=== PATIENT | male | born 1990 | race African-American/Black ===

== ENCOUNTER 2016-08-25 18:04 | Emergency (ER) | payer OTHER, SELFPAY ==
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
[2016-08-25 19:29] VITALS: BP 137/66; PULSE 72; O2SAT 94
== END 2016-08-25 19:29 | disposition home or self-care (01) ==
LOC: ED 18:04
DX: H66.41 Suppurative otitis media, unspecified, right ear (principal); Y04.0XXA Assault by unarmed brawl or fight, initial encounter
CPT/HCPCS: 99282

== ENCOUNTER 2016-08-27 19:35 | Emergency (ER) | payer OTHER ==
[2016-08-27] MEDS ORDERED: DILAUDID 1 MG/ML INJECTION IV ONE ×2 (20:07→21:22)
[2016-08-27] MEDS ORDERED: BENADRYL 50 MG/ML IV ONE ×2 (20:07→21:22)
[2016-08-27] MEDS ORDERED: Sodium Chloride 0.9% 1000 ML 1,000 ML IV STA (20:07)
[2016-08-27] MEDS ORDERED: BENADRYL 50 MG/ML ONE ×2 (20:13→21:39)
[2016-08-27] MEDS ORDERED: Sodium Chloride 0.9% 1000 ML 1,000 ML ONE (20:14)
[2016-08-27] MEDS ORDERED: Adacel Vial IM ONE ×2 (20:14→20:17)
[2016-08-27] MEDS ORDERED: DILAUDID 1 MG/ML INJECTION ONE ×2 (20:14→21:39)
--- NOTE | 2016-08-27 20:14 | ERPHSYRPT ---
- History of Present Illness Time Seen by Provider: 08/27/16 20:00 Source: patient Patient Subjective Stated Complaint: Pt sts seen 2 days ago in this ER for ear pain, dx with "infection". Given Rx for naproxen and bactrim. Sts area behind rt ear is increasing in size with increased pain and discomfort. Denies fever, nausea, vomiting. Pt sts pain 10/10. Triage Nursing Assessment: Pt alert, oriented, ambulatory to tx room, steady gait noted. Skin p/w/d, resps non-labored. Area behind rt ear appears reddened, swollen, warm to touch. Physician History: CC: right ear pain Hx: 26 y/o male pt with few day hx of pain and swelling behind right ear. Was in ER two days ago and started bactrim. The redness, pain, and swelling have worsened. No fever, headache. No other boils. No hx of infectious problems. Works in food industry. No allergies. Unsure last tetanus. Pain moderately severe. Severity: moderate ENT Location: ear (R) Allergies/Adverse Reactions: No Known Drug Allergies Allergy (Verified 08/27/16 20:09) Hx Tetanus, Diphtheria Vaccination/Date Given: No Hx Influenza Vaccination/Date Given: No Hx Pneumococcal Vaccination/Date Given: No - Review of Systems Constitutional: No Fever, No Chills Eyes: No Symptoms Ears, Nose, & Throat: Ear Pain Respiratory: No Dyspnea Cardiac: No Chest Pain Abdominal/Gastrointestinal: No Abdominal Pain, No Nausea, No Vomiting Musculoskeletal: No Back Pain, No Neck Pain Skin: No Rash Neurological: No Headache All Other Systems: Reviewed and Negative - Past Medical History Pertinent Past Medical History: Yes Neurological History: No Pertinent History ENT History: No Pertinent History Cardiac History: No Pertinent History Respiratory History: No Pertinent History Endocrine Medical History: No Pertinent History Musculoskeletal History: No Pertinent History GI Medical History: Ulcer Psycho-Social History: No Pertinent History Male Reproductive Disorders: No Pertinent History - Past Surgical History Past Surgical History: Yes Cardiac: Cardiac Catheterization Other Surgical History: cath to check heart murmur at age 16 - Social History Smoking Status: Current every day smoker How long have you smoked: 9 Exposure to second hand smoke: Yes Alcohol Use: Chronic Drug Use: marijuana Patient Lives Alone: No Significant Family History: no pertinent family hx - Nursing Vital Signs Nursing Vital Signs: Initial Vital Signs Temperature 98.0 F Temperature Source Oral Pulse Rate 67 Respiratory Rate 16 Blood Pressure 114/78 Pain Intensity 6 - Physical Exam General Appearance: alert Eye Exam: bilateral eye: PERRL, EOMI Nasal Exam: normal inspection Throat Exam: pharynx normal, moist mucus membranes, No tonsillar exudate Neck Exam: non-tender, supple Cardiovascular/Respiratory Exam: chest non-tender, normal breath sounds, regular rate/rhythm Abdominal Exam: non-tender, soft Neurologic Exam: alert, oriented x 3, cooperative Skin Exam: warm, dry SpO2: 98 Oxygen Delivery: Room Air Comments: 2cm swollen cystic nodular area inferior and posterior to right auricle. Likely abscess. Doubt mastoiditis involved. TM normal. No pain with movement of pinna. Procedures - Incision and Drainage Site: right posterior auricular/neck area Anesthesia: 1% lidocaine w/epi cc's of anesthesia: 3 Blade Size: scalpel I & D Procedure: betadine prep, culture obtained, gauze wick placed Results: large amount pus - Course Nursing assessment & vital signs reviewed: Yes Ordered Tests: Active Orders 24 hr Category Date Time Status IV Insertion STAT Care 08/27/16 20:07 Active NPO (ED) STAT Care 08/27/16 20:07 Active NECK WITH CONTRAST [CT] Stat Exams 08/27/16 20:09 Taken BLOOD CULTURE Stat Lab 08/27/16 20:20 Received CBC W DIFF Stat Lab 08/27/16 20:20 Completed CMP Stat Lab 08/27/16 20:20 Completed CULTURE,WOUND Stat Lab 08/27/16 22:14 Ordered Lactic Acid Urgent Lab 08/27/16 20:20 Completed Medication Summary Discontinued Medications Generic Name Dose Route Start Last Admin Trade Name Elenita PRN Reason Stop Dose Admin Diphenhydramine HCl 25 mg 08/27/16 20:07 08/27/16 20:20 Benadryl 50 Mg/Ml IV 08/27/16 20:08 25 mg STAT ONE Administration Diphenhydramine HCl Confirm 08/27/16 20:13 Benadryl 50 Mg/Ml Administered 08/27/16 20:14 Dose 50 mg .ROUTE .STK-MED ONE Diphenhydramine HCl 25 mg 08/27/16 21:22 08/27/16 21:46 Benadryl 50 Mg/Ml IV 08/27/16 21:23 25 mg STAT ONE Administration Diphenhydramine HCl Confirm 08/27/16 21:39 Benadryl 50 Mg/Ml Administered 08/27/16 21:40 Dose 50 mg .ROUTE .STK-MED ONE Diphtheria/Tetanus/Acell Pertussis 0.5 ml 08/27/16 20:14 08/27/16 20:20 Adacel Vial IM 08/27/16 20:15 0.5 ml .ONCE ONE Administration Diphtheria/Tetanus/Acell Pertussis Confirm 08/27/16 20:17 Adacel Vial Administered 08/27/16 20:18 Dose 0.5 ml IM .STK-MED ONE Hydromorphone HCl 1 mg 08/27/16 20:07 08/27/16 20:20 Dilaudid 1 Mg/Ml Injection IV 08/27/16 20:08 1 mg STAT ONE Administration Hydromorphone HCl Confirm 08/27/16 20:14 Dilaudid 1 Mg/Ml Injection Administered 08/27/16 20:15 Dose 1 mg .ROUTE .STK-MED ONE Hydromorphone HCl 1 mg 08/27/16 21:22 08/27/16 21:46 Dilaudid 1 Mg/Ml Injection IV 08/27/16 21:23 1 mg STAT ONE Administration Hydromorphone HCl Confirm 08/27/16 21:39 Dilaudid 1 Mg/Ml Injection Administered 08/27/16 21:40 Dose 1 mg .ROUTE .STK-MED ONE Sodium Chloride 1,000 mls @ 999 mls/hr 08/27/16 20:07 08/27/16 20:19 Sodium Chloride 0.9% 1000 Ml IV 08/27/16 21:07 999 mls/hr .Q1H1M STA Administration Sodium Chloride Confirm 08/27/16 20:14 Sodium Chloride 0.9% 1000 Ml Administered 08/27/16 20:15 Dose 1,000 mls @ ud .ROUTE .STK-MED ONE Lidocaine/Epinephrine 5 ml 08/27/16 21:22 08/27/16 21:46 Xylocaine 1%/Epi 1:[id number] Mdv 20 Ml IJ 08/27/16 21:23 5 ml STAT ONE Administration Lidocaine/Epinephrine Confirm 08/27/16 21:39 Xylocaine 1%/Epi 1:902687 Mdv 20 Ml Administered 08/27/16 21:40 Dose 1 ml .ROUTE .STK-MED ONE Lab/Rad Data: Laboratory Result Diagrams 08/27/16 20:20 08/27/16 20:20 Laboratory Results 08/27/16 08/27/16 08/27/16 Range/Units 20:20 20:20 20:20 WBC 5.0 (4.0-10.5) K/mm3 RBC 4.71 (4.1-5.6) M/mm3 Hgb 14.2 (12.5-18.0) gm/dl Hct 42.8 (42-50) % MCV 90.9 (78-100) fl MCH 30.1 (26-32) pg MCHC 33.2 (32-36) g/dl RDW 13.4 (11.5-14.0) % Plt Count 125 L (150-450) K/mm3 MPV 11.5 H (6-9.5) fl Gran % 43.8 (36.0-66.0) % Lymphocytes % 41.9 (24.0-44.0) % Monocytes % 10.1 (0.0-12.0) % Eosinophils % 3.8 (0.00-5.0) % Basophils % 0.4 (0.0-0.4) % Basophils # 0.02 (0-0.4) Sodium 142 (136-145) mEq/L Potassium 3.5 (3.5-5.1) mEq/L Chloride 103 (98-107) mEq/L Carbon Dioxide 30.7 (21-32) mEq/L Anion Gap 11.5 (5-15) MEQ/L BUN 14 (9-20) mg/dL Creatinine 1.04 (0.55-1.30) mg/dl Estimated GFR > 60 ML/MIN Glucose 119 H (70-110) MG/DL Lactic Acid 1.0 (0.4-2.0) Calcium 9.0 (8.5-10.1) mg/dL Total Bilirubin 0.5 (0.2-1.0) mg/dL AST 93 H (15-37) U/L ALT 192 H (12-78) U/L Alkaline Phosphatase 260 H (46-116) U/L Serum Total Protein 6.3 L (6.4-8.2) gm/dL Albumin 3.5 (3.4-5.0) g/dL - Progress Progress Note: 08/27/16 20:13 Spoke to commercial hvac service technician and will CT thru mastoids to assess for deep infection. Advised pt likely needs I&D. 08/27/16 21:23 CT shows soft tissue mass area. ?lymph node vs abscess. Will attempt I&D. This was discussed with pt. 08/27/16 22:15 Pt was advised continue bactrim, wound care, and follow up with family doctor to have liver checked. Counseled pt/family regarding: lab results, diagnosis, need for follow-up - Departure Time of Disposition: 22:16 Departure Disposition: Home Clinical Impression: abscess right posterior auricular, Elevated transaminase level Condition: Stable Critical Care Time: No Referrals: DOCTOR,NO FAMILY [Primary Care Provider] - Instructions: Incision and Drainage of a Skin Abscess Additional Instructions: Remove packing tomorrow then warm compresses 4 times a day. Continue bactrim antibiotics. You need to see a family doctor to have liver checked. Return for fever, worsening or concerns. Ibuprofen as directed for fever or discomfort.
[2016-08-27 20:31] LABS: BASOPHIL % 0.4 % (0.0-0.4); Eosinophil % 3.8 % (0.00-5.0); Granulocytes % 43.8 % (36.0-66.0); Lymphocytes % 41.9 % (24.0-44.0); Mean Cell Volume 90.9 fl (78-100); Mean Corpuscular Hemoglobin 30.1 pg (26-32); Mean Platelet Volume 11.5 fl (6-9.5); Monocytes % 10.1 % (0.0-12.0); Platelet Count 125 K/mm3 (150-450); Red Blood Count 4.71 M/mm3 (4.1-5.6); Red Cell Distribution Width 13.4 % (11.5-14.0)
[2016-08-27 20:53] LABS: ALBUMIN 3.5 g/dL (3.4-5.0); ALKALINE PHOSPHATASE 260 U/L (46-116); ANION GAP 11.5 MEQ/L (5-15); BILIRUBIN,TOTAL 0.5 mg/dL (0.2-1.0); BLOOD UREA NITROGEN 14 mg/dL (9-20); CHLORIDE 103 mEq/L (98-107); Carbon Dioxide 30.7 mEq/L (21-32); Glucose 119 MG/DL (70-110); Potassium 3.5 mEq/L (3.5-5.1); SGOT/AST 93 U/L (15-37); SGPT/ALT 192 U/L (12-78); SODIUM 142 mEq/L (136-145); Total Protein 6.3 gm/dL (6.4-8.2)
[2016-08-27] MEDS ORDERED: XYLOCAINE 1%/Epi 1:100000 MDV 20 ML IJ ONE (21:22)
[2016-08-27] MEDS ORDERED: XYLOCAINE 1%/Epi 1:100000 MDV 20 ML ONE (21:39)
[2016-08-27 22:32] VITALS: BP 125/78; PULSE 70; O2SAT 96
--- NOTE | 2016-08-28 08:57 | XRAY ---
Indication: Right neck knot. Multiple contiguous axial images obtained through the neck using 80 cc Isovue 370 contrast. Comparison: None Inferior to the right ear, there is a vague cutaneous/subcutaneous soft tissue mass measuring 3.9 x 2.0 cm in greatest axial dimension with small focus of central hypoattenuation. Partial differential includes lymphadenopathy, parotiditis, or cellulitis. No pathologic cervical lymphadenopathy. Major arteries and veins are normal in course and caliber. Subra and infraglottic airway are widely patent. Thyroid gland enhances homogeneously. Underlying cervical spine intact. Visualized of the brain and lung apices unremarkable. Impression: Cutaneous/subcutaneous soft tissue mass inferior to the right ear either lymphadenopathy, parotiditis, or cellulitis. Correlate clinically. Comment: Preliminary interpretation was made by [facility]. No critical discrepancy. CTDI is 17.44
== END 2016-08-27 22:32 | disposition home or self-care (01) ==
LOC: ED 19:35
PROC: 09900ZZ Drainage of Right External Ear, Open Approach (ICD-10-PCS; principal; 2016-08-27)
DX: H60.01 Abscess of right external ear (principal); R74.0 Nonspecific elevation of levels of transaminase and lactic acid dehydrogenase [LDH]
CPT/HCPCS: 36000; 36415; 69000; 70491; 80053; 83605; 85025; 87040; 87070; 90471; 90715; 96360; 99283; J1170; J1200

== ENCOUNTER 2016-09-05 11:19 | Emergency (ER) | payer OTHER ==
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
[2016-09-05] MEDS ORDERED: TORAdol 30 mg Injection IM ONE (12:02)
[2016-09-05 12:20] VITALS: BP 114/72; PULSE 62
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
[2016-09-05] MEDS ORDERED: ZOFRAN ODT 4 MG PO ONE (12:51)
[2016-09-05 12:54] VITALS: O2SAT 98
== END 2016-09-05 13:17 ==
LOC: ED 11:19
DX: M54.9 Dorsalgia, unspecified (principal); S30.0XXA Contusion of lower back and pelvis, initial encounter; S50.12XA Contusion of left forearm, initial encounter; Y08.02XA Assault by strike by baseball bat, initial encounter; R11.2 Nausea with vomiting, unspecified
CPT/HCPCS: 72170; 73090; 96372; 99283; J1885; Q0162

== ENCOUNTER 2016-09-13 14:12 | Emergency (ER) | payer OTHER ==
[2016-09-13] MEDS ORDERED: Pepcid 20 MG VIAL IV ONE ×2 (14:54→14:59)
[2016-09-13] MEDS ORDERED: Phenergan 25 MG INJ IM ONE (14:54)
[2016-09-13] MEDS ORDERED: Phenergan 25 MG INJ ONE (14:59)
[2016-09-13 15:01] LABS: BASOPHIL % 0.8 % (0.0-0.4); Eosinophil % 2.1 % (0.00-5.0); Granulocytes % 32.2 % (36.0-66.0); Lymphocytes % 52.4 % (24.0-44.0); Mean Cell Volume 91.4 fl (78-100); Mean Corpuscular Hemoglobin 29.9 pg (26-32); Mean Platelet Volume 11.9 fl (6-9.5); Monocytes % 12.5 % (0.0-12.0); Platelet Count 156 K/mm3 (150-450); Red Blood Count 5.21 M/mm3 (4.1-5.6); Red Cell Distribution Width 13.1 % (11.5-14.0); White Blood Count 3.8 K/mm3 (4.0-10.5)
--- NOTE | 2016-09-13 15:04 | ERPHSYRPT ---
- History of Present Illness Time Seen by Provider: 09/13/16 14:45 Historian: patient Patient Subjective Stated Complaint: Pt states he has been having stomach issues for a while now. He thought it was just a bug but it wont go away. He states he has n/v and constipation along with loss of appetite. He states he thinks "something is wrong with his kidneys because something is wrong with his stomach". Denies any difficulties with urination. Triage Nursing Assessment: Pt alert and oriented x3. skin pink warm and dry. afebrile. pt does not appear to be in any distress at this time. bowel sounds present x4. abdomen soft and tender with palpation Physician History: CC: abd pain Hx: 26 y/o male patient with abd pain. He has decreased apetite, malaise, sharp pains in the abdomen. No fever or chills. No hx of chronic abd problems. Pain is severe. Was some worse so came to ER today. Timing/Duration: week(s) (few weeks now worse) Severity of Pain-Max: severe Severity of Pain-Current: moderate Allergies/Adverse Reactions: No Known Drug Allergies Allergy (Verified 09/13/16 14:16) Home Medications: Ondansetron [Zofran Odt] 4 mg PO Q4HPRN PRN 09/13/16 [History] Hx Tetanus, Diphtheria Vaccination/Date Given: Yes (2015) Hx Influenza Vaccination/Date Given: No Hx Pneumococcal Vaccination/Date Given: No - Review of Systems Constitutional: Malaise, No Fever, No Chills Eyes: No Symptoms Ears, Nose, & Throat: No Symptoms Respiratory: No Cough, No Dyspnea Cardiac: No Chest Pain Abdominal/Gastrointestinal: Abdominal Pain, Nausea, No Vomiting, No Diarrhea, No Constipation Genitourinary Symptoms: No Dysuria, No Hematuria Skin: No Rash Neurological: No Headache All Other Systems: Reviewed and Negative - Past Medical History Pertinent Past Medical History: Yes Neurological History: No Pertinent History ENT History: No Pertinent History Cardiac History: No Pertinent History Respiratory History: No Pertinent History Endocrine Medical History: No Pertinent History Musculoskeletal History: No Pertinent History GI Medical History: Ulcer Psycho-Social History: No Pertinent History Male Reproductive Disorders: No Pertinent History - Past Surgical History Past Surgical History: Yes Cardiac: Cardiac Catheterization Other Surgical History: cath to check heart murmur at age 16 - Social History Smoking Status: Current every day smoker How long have you smoked: 9 Exposure to second hand smoke: Yes Alcohol Use: Chronic Drug Use: marijuana Patient Lives Alone: No Significant Family History: no pertinent family hx - Nursing Vital Signs Nursing Vital Signs: Initial Vital Signs Temperature 98.2 F Temperature Source Oral Pulse Rate 68 Respiratory Rate 16 Blood Pressure [Right Arm] 117/83 Pain Intensity 8 - Physical Exam General Appearance: alert Eye Exam: PERRL/EOMI Ears, Nose, Throat Exam: normal ENT inspection, moist mucous membranes Neck Exam: normal inspection, non-tender, supple Respiratory Exam: normal breath sounds, lungs clear Cardiovascular Exam: regular rate/rhythm, No murmur Gastrointestinal/Abdomen Exam: soft, tenderness (epigastric but moreso in RLQ, scaphoid abdomen) Male Genitalia Exam: normal genitalia, No hernia, No testicular tenderness Back Exam: normal inspection, No CVA tenderness Extremity Exam: normal inspection, normal range of motion Neurologic Exam: alert, oriented x 3, cooperative, sensation nml, No motor deficits Skin Exam: warm, dry, No rash SpO2 Interpretation: normal SpO2: 100 Oxygen Delivery: Room Air - Course Nursing assessment & vital signs reviewed: Yes Ordered Tests: Active Orders 24 hr Category Date Time Status Clean Catch Urine Specimen STAT Care 09/13/16 14:45 Active IV Insertion STAT Care 09/13/16 14:45 Active ABDOMEN AND PELVIS W CONTRAST [CT] Stat Exams 09/13/16 14:55 Taken CBC W DIFF Stat Lab 09/13/16 14:45 Completed CMP Stat Lab 09/13/16 14:45 Completed LIPASE Stat Lab 09/13/16 14:45 Completed UA Stat Lab 09/13/16 14:45 Completed Medication Summary Discontinued Medications Generic Name Dose Route Start Last Admin Trade Name Freq PRN Reason Stop Dose Admin Famotidine 20 mg 09/13/16 14:54 09/13/16 15:01 Pepcid 20 Mg Vial IV 09/13/16 14:55 20 mg STAT ONE Administration Famotidine Confirm 09/13/16 14:59 Pepcid 20 Mg Vial Administered 09/13/16 15:00 Dose 20 mg IV .STK-MED ONE Promethazine HCl 25 mg 09/13/16 14:54 09/13/16 15:01 Phenergan 25 Mg Inj IM 09/13/16 14:55 25 mg STAT ONE Administration Promethazine HCl Confirm 09/13/16 14:59 Phenergan 25 Mg Inj Administered 09/13/16 15:00 Dose 25 mg .ROUTE .STK-MED ONE Lab/Rad Data: Laboratory Result Diagrams 09/13/16 14:45 09/13/16 14:45 Laboratory Results 09/13/16 09/13/16 09/13/16 Range/Units 14:45 14:45 14:45 WBC 3.8 L (4.0-10.5) K/mm3 RBC 5.21 (4.1-5.6) M/mm3 Hgb 15.6 (12.5-18.0) gm/dl Hct 47.6 (42-50) % MCV 91.4 (78-100) fl MCH 29.9 (26-32) pg MCHC 32.8 (32-36) g/dl RDW 13.1 (11.5-14.0) % Plt Count 156 (150-450) K/mm3 MPV 11.9 H (6-9.5) fl Gran % 32.2 L (36.0-66.0) % Lymphocytes % 52.4 H (24.0-44.0) % Monocytes % 12.5 H (0.0-12.0) % Eosinophils % 2.1 (0.00-5.0) % Basophils % 0.8 (0.0-0.4) % Basophils # 0.03 (0-0.4) Sodium 143 (136-145) mEq/L Potassium 3.6 (3.5-5.1) mEq/L Chloride 105 (98-107) mEq/L Carbon Dioxide 28.0 (21-32) mEq/L Anion Gap 13.2 (5-15) MEQ/L BUN 8 L (9-20) mg/dL Creatinine 0.97 (0.55-1.30) mg/dl Estimated GFR > 60 ML/MIN Glucose 89 (70-110) MG/DL Calcium 9.4 (8.5-10.1) mg/dL Total Bilirubin 0.8 (0.2-1.0) mg/dL AST 42 H (15-37) U/L ALT 69 (12-78) U/L Alkaline Phosphatase 211 H (46-116) U/L Serum Total Protein 7.1 (6.4-8.2) gm/dL Albumin 4.0 (3.4-5.0) g/dL Lipase 77 (73-393) U/L Ur Collection Type VOID Urine Color YELLOW (YELLOW) Urine Appearance CLOUDY (CLEAR) Urine pH 8.5 (5-6) Ur Specific [place] 1.020 (1.005-1.025) Urine Protein NEGATIVE (Negative) Urine Glucose (UA) NEGATIVE (NEGATIVE) mg/dL Urine Ketones NEGATIVE (NEGATIVE) Urine Nitrite NEGATIVE (NEGATIVE) Urine Bilirubin NEGATIVE (NEGATIVE) Urine Urobilinogen 1 (0-1) mg/dL Urine WBC (Auto) NEGATIVE (NEGATIVE) Urine RBC (Auto) NEGATIVE (0-5) Delfino/ul Specimen Received 09/13/16 1445 - Progress Progress Note: 09/13/16 15:04 Discussed testing including pros and cons of CT. Pt chose CT. 09/13/16 17:11 CT abd/pelvis: [place]aney 5:00 PM 09/13/2016: No comps. Mild distended GB w/ borderline wall thickening but no stones...r/o acalculous cholecystits. Nonobstructing R renal microcalculus. B/L renal cysts. Appendix not seen. No free fluid/air. 09/13/16 17:15 Soft abd. Advised follow up with [facility]MD for sonogram of GB. Rx pepcid. He needs work slip. Abd pain instructions given. Counseled pt/family regarding: lab results, diagnosis, need for follow-up, rad results - Departure Time of Disposition: 17:15 Departure Disposition: Home Clinical Impression: Thickening of wall of gallbladder Abdominal pain Qualifiers: Abdominal location: epigastric Qualified Code(s): R10.13 - Epigastric pain Condition: Stable Critical Care Time: No Referrals: Provider,Unknown [Primary Care Provider] - Instructions: Abdominal Pain-Adult, General Gallbladder Conditions Additional Instructions: [place] diet with no fatty, greasy, spicy foods. Follow up next week for gallbladder sonogram. Return for problems or concerns. Rx pepcid. Prescriptions: Famotidine 20 mg [Pepcid 20 MG] 1 tab PO BID #30 tablet
[2016-09-13 15:05] LABS: Collection Type VOID
[2016-09-13 15:06] LABS: COMPLETE URINE MICROSCOPIC? NO; Ph 8.5 (5-6)
[2016-09-13 15:24] LABS: ALKALINE PHOSPHATASE 211 U/L (46-116); ANION GAP 13.2 MEQ/L (5-15); BILIRUBIN,TOTAL 0.8 mg/dL (0.2-1.0); BLOOD UREA NITROGEN 8 mg/dL (9-20); CHLORIDE 105 mEq/L (98-107); Glucose 89 MG/DL (70-110); LIPASE 77 U/L (73-393); Potassium 3.6 mEq/L (3.5-5.1); SGOT/AST 42 U/L (15-37); SGPT/ALT 69 U/L (12-78); SODIUM 143 mEq/L (136-145); Total Protein 7.1 gm/dL (6.4-8.2)
[2016-09-13 17:38] VITALS: BP 106/59; PULSE 64; O2SAT 96
--- NOTE | 2016-09-13 19:07 | XRAY ---
Indication: Abdominal pain. Multiple contiguous axial images obtained through the abdomen and pelvis using 80 cc of Isovue-370 contrast and oral contrast. Comparison: None Lung bases clear. Heart is not enlarged. Contrasted stomach and bowel loops appear nonobstructed. Appendix not seen. No free fluid/air. Gallbladder is mildly distended without gallstones. There is mild gallbladder wall thickening. Bilateral renal cysts, largest in the right kidney measuring 2.5 cm. Nonobstructing right renal micro-calculus. Remaining liver, pancreas, spleen, adrenal glands, kidneys, ureters, bladder, and aorta appear normal in CT appearance and attenuation. No pathologic retroperitoneal lymphadenopathy. Osseous structures intact. Impression: 1. Mildly distended gallbladder with borderline wall thickening but no gallstones. Rule out acalculous cholecystitis. 2. Bilateral renal cysts and nonobstructing right renal micro-calculus. CT DI 8.07
== END 2016-09-13 17:38 | disposition home or self-care (01) ==
LOC: ED 14:12
DX: R10.13 Epigastric pain (principal); K82.8 Other specified diseases of gallbladder; R11.0 Nausea
CPT/HCPCS: 36000; 36415; 74177; 80053; 81002; 83690; 85025; 96360; 96372; 96374; 99283; J2550

== ENCOUNTER 2016-09-20 16:23 | Emergency (ER) | payer OTHER ==
[2016-09-20] MEDS ORDERED: TORAdol 30 mg Injection IM ONE (17:43)
--- NOTE | 2016-09-20 17:44 | ERPHSYRPT ---
- History of Present Illness Time Seen by Provider: 09/20/16 17:40 Source: patient Exam Limitations: no limitations Physician History: 26 y/o male comes to the ER after falling on the concrete after carrying groceries and landing on his right hip. Pt describes the pain as sharp, constant , 8/10, worst with touch and not relieved by marijuana. Pt denies any other injuries Timing/Duration: today Occured at: street Context: fall Quality: sharpness Hip Pain Location: hip (R) Severity of Pain-Max: severe Severity of Pain-Current: severe Modifying Factors: Improves With: nothing Symptoms prior to fall: none Associated Symptoms: denies symptoms Allergies/Adverse Reactions: No Known Drug Allergies Allergy (Verified 09/20/16 17:47) Hx Tetanus, Diphtheria Vaccination/Date Given: Yes (2015) Hx Influenza Vaccination/Date Given: No Hx Pneumococcal Vaccination/Date Given: No - Review of Systems Constitutional: No Fever, No Chills Eyes: No Symptoms Ears, Nose, & Throat: No Symptoms Respiratory: No Cough, No Dyspnea Cardiac: No Chest Pain, No Edema, No Syncope Abdominal/Gastrointestinal: No Abdominal Pain, No Nausea, No Vomiting, No Diarrhea Genitourinary Symptoms: No Dysuria Musculoskeletal: Fall, Injury, Joint Pain, No Back Pain, No Neck Pain Skin: No Rash Neurological: No Dizziness, No Focal Weakness, No Sensory Changes Psychological: No Symptoms Endocrine: No Symptoms All Other Systems: Reviewed and Negative - Past Medical History Pertinent Past Medical History: Yes Neurological History: No Pertinent History ENT History: No Pertinent History Cardiac History: No Pertinent History Respiratory History: No Pertinent History Endocrine Medical History: No Pertinent History Musculoskeletal History: No Pertinent History GI Medical History: Ulcer Psycho-Social History: No Pertinent History Male Reproductive Disorders: No Pertinent History - Past Surgical History Past Surgical History: Yes Cardiac: Cardiac Catheterization Other Surgical History: cath to check heart murmur at age 16 - Social History Smoking Status: Current every day smoker How long have you smoked: 9 Exposure to second hand smoke: Yes Alcohol Use: Chronic Drug Use: marijuana Patient Lives Alone: No Significant Family History: no pertinent family hx - Nursing Vital Signs Nursing Vital Signs: Initial Vital Signs Temperature 98.7 F Temperature Source Oral Pulse Rate 79 Respiratory Rate 18 Blood Pressure [Right Arm] 130/68 Pain Intensity [Right Lower 6 Back] Pain Intensity 8 - Physical Exam General Appearance: mild distress, alert Eye Exam: PERRL/EOMI Ears, Nose, Throat Exam: normal ENT inspection, moist mucous membranes Neck Exam: normal inspection, non-tender, supple Respiratory Exam: normal breath sounds, lungs clear, No chest tenderness, No respiratory distress Cardiovascular Exam: regular rate/rhythm, No edema Gastrointestinal Exam: soft, No tenderness, No distention, No guarding Back Exam: normal inspection, normal range of motion, point tenderness, No vertebral tenderness Extremity Exam: normal inspection, normal range of motion, pelvis stable Neurologic Exam: alert, oriented x 3, cooperative, expert witness II-XII nml as tested, sensation nml, No motor deficits Skin Exam: normal color, warm, dry, No rash Ordered Tests: Active Orders 24 hr Category Date Time Status HIP UNI (2V) INCL PEL IF DONE Stat Exams 09/20/16 17:43 Ordered Medication Summary Discontinued Medications Generic Name Dose Route Start Last Admin Trade Name Freq PRN Reason Stop Dose Admin Ketorolac Tromethamine 60 mg 09/20/16 17:43 09/20/16 18:12 Toradol 30 Mg Injection IM 09/20/16 17:44 60 mg STAT ONE Administration Ketorolac Tromethamine Confirm 09/20/16 18:07 Toradol 30 Mg Injection Administered 09/20/16 18:08 Dose 60 mg .ROUTE .STK-MED ONE - Progress Progress: improved Progress Note: 09/20/16 18:47 The hip x ray is within normal limits. Pt feels better after receiving toradol 60mg IM X 1 dose. Pt will be d/c home on toradol for pain. - Departure Time of Disposition: 18:48 Departure Disposition: Home Clinical Impression: Hip pain Condition: Stable Critical Care Time: No Referrals: OBED BLANCO [Primary Care Provider] - Instructions: Low Back Pain Additional Instructions: Follow up with your primary care doctor if you should have worsening hip pain Prescriptions: Ketorolac Tromethamine [Toradol] 10 mg PO Q6H PRN PRN #20 tablet PRN Reason: Pain
[2016-09-20] MEDS ORDERED: TORAdol 30 mg Injection ONE (18:07)
[2016-09-20 19:00] VITALS: BP 119/70; PULSE 87; O2SAT 100
--- NOTE | 2016-09-20 22:18 | XRAY ---
Indication: Pain following injury. Comparison: None 2 views of the right hip demonstrates normal bones, articulation, and soft tissues.
== END 2016-09-20 19:00 | disposition home or self-care (01) ==
LOC: ED 16:23
DX: M25.551 Pain in right hip (principal); W18.39XA Other fall on same level, initial encounter
CPT/HCPCS: 73502; 96372; 99282; J1885

== ENCOUNTER 2016-10-02 05:25 | Emergency (ER) | payer OTHER, SELFPAY ==
[2016-10-02] MEDS ORDERED: Sodium Chloride 0.9% 1000 ML 1,000 ML IV STA (05:39)
[2016-10-02] MEDS ORDERED: Phenergan 25 MG INJ IV ONE (05:39)
--- NOTE | 2016-10-02 05:39 | ERPHSYRPT ---
- History of Present Illness Time Seen by Provider: 10/02/16 05:32 Source: patient Exam Limitations: no limitations Patient Subjective Stated Complaint: states that he was over at his friends house yesterday, using marijuana - and has had body aches and diarrhea since noon yesterday with abd cramping Triage Nursing Assessment: wc to treatment area - steady gait to cart - moves all extremities with moderate weakness. resps easy - non-labored. skin pwd - no rash/injury. alert/oriented - pupils 4mm Physician History: FOR THE PAST 18.5 HOURS PT HAS HAD ABDOMINAL CRAMPS, GENERALIZED ACHES, NAUSEA, DIARRHEA X5 WITHOUT BLOOD AND THIS AM FEVER UP TO 101.1 DEGREES. Allergies/Adverse Reactions: No Known Drug Allergies Allergy (Verified 10/02/16 05:28) Hx Tetanus, Diphtheria Vaccination/Date Given: Yes Hx Influenza Vaccination/Date Given: No Hx Pneumococcal Vaccination/Date Given: No Immunizations Up to Date: Yes - Review of Systems Constitutional: Fever Respiratory: No Cough, No Dyspnea Cardiac: No Chest Pain Abdominal/Gastrointestinal: Abdominal Pain, Nausea, Diarrhea, No Vomiting Musculoskeletal: Myalgias Neurological: No Headache Endocrine: No Excessive Sweating All Other Systems: Reviewed and Negative - Past Medical History Pertinent Past Medical History: Yes Neurological History: No Pertinent History ENT History: No Pertinent History Cardiac History: No Pertinent History Respiratory History: No Pertinent History Endocrine Medical History: No Pertinent History Musculoskeletal History: No Pertinent History GI Medical History: Ulcer Psycho-Social History: No Pertinent History Male Reproductive Disorders: No Pertinent History - Past Surgical History Past Surgical History: Yes Cardiac: Cardiac Catheterization Other Surgical History: cath to check heart murmur at age 16 - Social History Smoking Status: Current every day smoker How long have you smoked: 9 Exposure to second hand smoke: No Alcohol Use: Chronic Drug Use: marijuana Patient Lives Alone: No Significant Family History: no pertinent family hx - Nursing Vital Signs Nursing Vital Signs: Initial Vital Signs Temperature 99.2 F Temperature Source Oral Pulse Rate 62 Respiratory Rate 14 Blood Pressure [Right Arm] 114/64 Pain Intensity 2 - Physical Exam General Appearance: alert Eye Exam: PERRL/EOMI Ears, Nose, Throat Exam: TMs normal, dry mucous membranes, pharyngeal erythema Neck Exam: normal inspection Respiratory Exam: lungs clear Cardiovascular Exam: normal heart sounds Gastrointestinal/Abdomen Exam: soft, other (B.S. MILDLY HYPERACTIVE AND NORMOTONIC) Back Exam: normal range of motion Extremity Exam: normal inspection, No pedal edema Neurologic Exam: alert, cooperative Skin Exam: warm, dry SpO2 Interpretation: normal SpO2: 95 Oxygen Delivery: Room Air - Course Nursing assessment & vital signs reviewed: Yes Ordered Tests: Active Orders 24 hr Category Date Time Status IV Insertion STAT Care 10/02/16 05:39 Active AMYLASE Stat Lab 10/02/16 05:40 Completed CBC W DIFF Stat Lab 10/02/16 05:40 Completed CMP Stat Lab 10/02/16 05:40 Completed CULTURE, THROAT Stat Lab 10/02/16 05:45 Received LIPASE Stat Lab 10/02/16 05:40 Completed MAGNESIUM Stat Lab 10/02/16 05:40 Completed [place] Screen Stat Lab 10/02/16 05:40 Completed STREP SCREEN-BETA A Stat Lab 10/02/16 05:45 Completed UA W/ MICROSCOPIC Stat Lab 10/02/16 06:45 Completed Urine Triage Profile Stat Lab 10/02/16 05:39 Ordered Medication Summary Generic Name Dose Route Start Last Admin Trade Name Freq PRN Reason Stop Dose Admin Magnesium Oxide 400 mg 10/02/16 10:00 10/02/16 06:31 Mag-Ox 400 PO 11/01/16 09:59 400 mg BID TORY Administration Potassium Chloride 40 meq 10/02/16 10:00 10/02/16 06:31 Potassium Chl 40 Meq/30 Ml Oral Solution PO 11/01/16 09:59 40 meq DAILY TORY Administration Discontinued Medications Generic Name Dose Route Start Last Admin Trade Name Freq PRN Reason Stop Dose Admin Sodium Chloride 1,000 mls @ 999 mls/hr 10/02/16 05:39 10/02/16 05:53 Sodium Chloride 0.9% 1000 Ml IV 10/02/16 06:39 999 mls/hr .Q1H1M STA Administration Sodium Chloride Confirm 10/02/16 05:50 Sodium Chloride 0.9% 1000 Ml Administered 10/02/16 05:51 Dose 1,000 mls @ ud .ROUTE .STK-MED ONE Magnesium Oxide Confirm 10/02/16 06:28 Mag-Ox 400 Administered 10/02/16 06:29 Dose 400 mg .ROUTE .STK-MED ONE Potassium Chloride Confirm 10/02/16 06:28 Potassium Chl 40 Meq/30 Ml Oral Solution Administered 10/02/16 06:29 Dose 40 meq .ROUTE .STK-MED ONE Promethazine HCl 12.5 mg 10/02/16 05:39 10/02/16 05:53 Phenergan 25 Mg Inj IV 10/02/16 05:40 12.5 mg STAT ONE Administration Promethazine HCl Confirm 10/02/16 05:50 Phenergan 25 Mg Inj Administered 10/02/16 05:51 Dose 25 mg .ROUTE .STK-MED ONE Lab/Rad Data: Laboratory Result Diagrams 10/02/16 05:40 10/02/16 05:40 Laboratory Results 10/02/16 10/02/16 10/02/16 Range/Units 06:45 05:45 05:40 WBC (4.0-10.5) K/mm3 RBC (4.1-5.6) M/mm3 Hgb (12.5-18.0) gm/dl Hct (42-50) % MCV (78-100) fl MCH (26-32) pg MCHC (32-36) g/dl RDW (11.5-14.0) % Plt Count (150-450) K/mm3 MPV (6-9.5) fl Gran % (36.0-66.0) % Lymphocytes % (24.0-44.0) % Monocytes % (0.0-12.0) % Eosinophils % (0.00-5.0) % Basophils % (0.0-0.4) % Basophils # (0-0.4) Sodium (136-145) mEq/L Potassium (3.5-5.1) mEq/L Chloride (98-107) mEq/L Carbon Dioxide (21-32) mEq/L Anion Gap (5-15) MEQ/L BUN (9-20) mg/dL Creatinine (0.55-1.30) mg/dl Estimated GFR ML/MIN Glucose (70-110) MG/DL Calcium (8.5-10.1) mg/dL Magnesium (1.8-2.4) mg/dL Total Bilirubin (0.2-1.0) mg/dL AST (15-37) U/L ALT (12-78) U/L Alkaline Phosphatase (46-116) U/L Serum Total Protein (6.4-8.2) gm/dL Albumin (3.4-5.0) g/dL Amylase (25-115) U/L Lipase (73-393) U/L Ur Collection Type CLEAN CATCH Urine Color YELLOW (YELLOW) Urine Appearance CLEAR (CLEAR) Urine pH 6.0 (5-6) Ur Specific [place] 1.025 (1.005-1.025) Urine Protein NEGATIVE (Negative) Urine Glucose (UA) NEGATIVE (NEGATIVE) mg/dL Urine Ketones SMALL-15 (NEGATIVE) Urine Nitrite NEGATIVE (NEGATIVE) Urine Bilirubin SMALL (NEGATIVE) Urine Urobilinogen 2 (0-1) mg/dL Urine WBC (Auto) NEGATIVE (NEGATIVE) Urine RBC (Auto) NEGATIVE (0-5) Delfino/ul Monoscreen NEGATIVE (Negative) Streptococcus Screen NEGATIVE (Negative) Specimen Received [id number] 10-0210/02/16 10/02/16 Range/Units 05:40 05:40 WBC 5.3 (4.0-10.5) K/mm3 RBC 5.00 (4.1-5.6) M/mm3 Hgb 15.2 (12.5-18.0) gm/dl Hct 45.8 (42-50) % MCV 91.6 (78-100) fl MCH 30.4 (26-32) pg MCHC 33.2 (32-36) g/dl RDW 13.6 (11.5-14.0) % Plt Count 123 L (150-450) K/mm3 MPV 10.9 H (6-9.5) fl Gran % 40.3 (36.0-66.0) % Lymphocytes % 48.0 H (24.0-44.0) % Monocytes % 9.8 (0.0-12.0) % Eosinophils % 1.1 (0.00-5.0) % Basophils % 0.8 (0.0-0.4) % Basophils # 0.04 (0-0.4) Sodium 143 (136-145) mEq/L Potassium 3.2 L (3.5-5.1) mEq/L Chloride 102 (98-107) mEq/L Carbon Dioxide 29.5 (21-32) mEq/L Anion Gap 14.3 (5-15) MEQ/L BUN 9 (9-20) mg/dL Creatinine 1.05 (0.55-1.30) mg/dl Estimated GFR > 60 ML/MIN Glucose 86 (70-110) MG/DL Calcium 9.0 (8.5-10.1) mg/dL Magnesium 1.4 L (1.8-2.4) mg/dL Total Bilirubin 0.9 (0.2-1.0) mg/dL AST 30 (15-37) U/L ALT 72 (12-78) U/L Alkaline Phosphatase 168 H (46-116) U/L Serum Total Protein 6.7 (6.4-8.2) gm/dL Albumin 3.9 (3.4-5.0) g/dL Amylase 67 (25-115) U/L Lipase 77 (73-393) U/L Ur Collection Type Urine Color (YELLOW) Urine Appearance (CLEAR) Urine pH (5-6) Ur Specific [place] (1.005-1.025) Urine Protein (Negative) Urine Glucose (UA) (NEGATIVE) mg/dL Urine Ketones (NEGATIVE) Urine Nitrite (NEGATIVE) Urine Bilirubin (NEGATIVE) Urine Urobilinogen (0-1) mg/dL Urine WBC (Auto) (NEGATIVE) Urine RBC (Auto) (0-5) Delfino/ul Monoscreen (Negative) Streptococcus Screen (Negative) Specimen Received - Departure Time of Disposition: 06:57 Departure Disposition: Home Clinical Impression: DIARRHEA, HYPOMAGNESEMIA, HYPOKALEMIA Condition: Fair Critical Care Time: No Referrals: OBED BLANCO [Primary Care Provider] - Instructions: Diarrhea and Traveler's Diarrhea -- Adult, Abdominal Pain-Adult Additional Instructions: FOLLOW UP WITH PRIVATE DOCTOR TOMORROW. Prescriptions: Ondansetron [Zofran Odt] 4 mg PO Q4H PRN PRN #14 tab.rapdis PRN Reason: Nausea/Vomiting
[2016-10-02] MEDS ORDERED: Phenergan 25 MG INJ ONE (05:50)
[2016-10-02] MEDS ORDERED: Sodium Chloride 0.9% 1000 ML 1,000 ML ONE (05:50)
[2016-10-02 05:53] LABS: BASOPHIL % 0.8 % (0.0-0.4); Eosinophil % 1.1 % (0.00-5.0); Granulocytes % 40.3 % (36.0-66.0); Mean Cell Volume 91.6 fl (78-100); Mean Corpuscular Hemoglobin 30.4 pg (26-32); Mean Platelet Volume 10.9 fl (6-9.5); Monocytes % 9.8 % (0.0-12.0); Platelet Count 123 K/mm3 (150-450); Red Cell Distribution Width 13.6 % (11.5-14.0); White Blood Count 5.3 K/mm3 (4.0-10.5)
[2016-10-02 06:20] LABS: ALBUMIN 3.9 g/dL (3.4-5.0); ALKALINE PHOSPHATASE 168 U/L (46-116); ANION GAP 14.3 MEQ/L (5-15); BILIRUBIN,TOTAL 0.9 mg/dL (0.2-1.0); BLOOD UREA NITROGEN 9 mg/dL (9-20); CHLORIDE 102 mEq/L (98-107); Carbon Dioxide 29.5 mEq/L (21-32); Glucose 86 MG/DL (70-110); LIPASE 77 U/L (73-393); MAGNESIUM 1.4 mg/dL (1.8-2.4); Potassium 3.2 mEq/L (3.5-5.1); SGOT/AST 30 U/L (15-37); SGPT/ALT 72 U/L (12-78); SODIUM 143 mEq/L (136-145); Total Protein 6.7 gm/dL (6.4-8.2)
[2016-10-02] MEDS ORDERED: POTASSIUM CHL 40 MEQ/30 ML ORAL SOLUTION ONE (06:28)
[2016-10-02] MEDS ORDERED: MAG-OX 400 ONE (06:28)
[2016-10-02 06:48] VITALS: BP 114/64; PULSE 62
[2016-10-02 06:53] LABS: Collection Type CLEAN CATCH
[2016-10-02 06:54] LABS: COMPLETE URINE MICROSCOPIC? NO
[2016-10-02 06:57] VITALS: O2SAT 95
[2016-10-02] MEDS ORDERED: POTASSIUM CHL 40 MEQ/30 ML ORAL SOLUTION PO SCH (10:00)
[2016-10-02] MEDS ORDERED: MAG-OX 400 PO SCH (10:00)
== END 2016-10-02 07:03 | disposition home or self-care (01) ==
LOC: ED 05:25
DX: R19.7 Diarrhea, unspecified (principal); E83.42 Hypomagnesemia; E87.6 Hypokalemia
CPT/HCPCS: 36000; 36415; 80053; 80307; 81000; 82150; 83690; 83735; 85025; 86308; 87070; 87430; 87631; 96360; 96374; 99283; 99284; J2550

== ENCOUNTER 2016-10-03 22:28 | Emergency (ER) | payer OTHER, SELFPAY ==
[2016-10-04 00:02] VITALS: BP 120/78; PULSE 60; O2SAT 98
--- NOTE | 2016-10-04 00:23 | ERPHSYRPT ---
- History of Present Illness Time Seen by Provider: 10/04/16 00:13 Source: patient Exam Limitations: no limitations Patient Subjective Stated Complaint: PT WAS SEEN HERE THE OTHER NIIGHT AND GIVEN MEDS AND NOW HE CAN'T TASTE FOOD OR DIGARETTES Triage Nursing Assessment: PT IS AWAKE AND ALERT AND ABLE TO ANSWER QUESTIONS IN NO DISTRESS Physician History: This is a 26-year-old black male who was seen here on October 02, [address] Laguna with complaint of body aches and diarrhea since noon the day prior to being seen patient apparently had been having an elevated a temperature he had been using marijuana prior to being seen in the emergency room patient was evaluated by Dr. Laguna laboratory data was obtained patient was given IV fluids and magnesium and potassium chloride as well as Phenergan patient had a potassium of 3.2 magnesium which was low 1.4 patient was discharged with Zofran 4 mg orally every 4 hours as needed Patient states that he is unable to taste. He really has no other real complaints other than this is not having shortness of breath no chest pain he just states he doesn't feel good on physical examination patient is alert oriented 3 pupils are somewhat enlarged but reactive eyes PERRLA EOMI fundi unremarkable past medical history includes a cardiac catheter to check a heart murmur at 16 years old social history is positive for marijuana use Timing/Duration: yesterday Severity: mild Modifying Factors: Improves With: nothing Associated Symptoms: other (patient having a problem tasting his food), No nausea, No vomiting, No abdominal pain, No shortness of breath, No heartburn, No diaphoresis, No cough, No chills, No chest pain, No fever, No headaches, No loss of appetite, No malaise, No rash, No syncope, No seizure, No weakness Allergies/Adverse Reactions: No Known Drug Allergies Allergy (Verified 10/04/16 00:03) Hx Tetanus, Diphtheria Vaccination/Date Given: Yes Hx Influenza Vaccination/Date Given: No Hx Pneumococcal Vaccination/Date Given: No - Review of Systems Constitutional: No Fever, No Chills Eyes: No Symptoms Ears, Nose, & Throat: Other (patient having a problem tasting his food), No Ear Pain, No Ear Discharge, No Hearing Changes, No Tinnitus, No Nose Pain, No Nose Congestion, No Nose Discharge, No Sinus Drainage, No Epistaxis, No Mouth Pain, No Mouth Swelling, No Loose Teeth, No Throat Pain, No Throat Swelling, No Hoarse , No Painful Swallowing, No Snoring, No Stridor Respiratory: No Cough, No Dyspnea Cardiac: No Chest Pain, No Edema, No Syncope Abdominal/Gastrointestinal: No Abdominal Pain, No Nausea, No Vomiting, No Diarrhea Genitourinary Symptoms: No Dysuria Musculoskeletal: No Back Pain, No Neck Pain Skin: No Rash Neurological: No Dizziness, No Focal Weakness, No Sensory Changes Psychological: No Symptoms Endocrine: No Symptoms All Other Systems: Reviewed and Negative - Past Medical History Pertinent Past Medical History: Yes Neurological History: No Pertinent History ENT History: No Pertinent History Cardiac History: No Pertinent History Respiratory History: No Pertinent History Endocrine Medical History: No Pertinent History Musculoskeletal History: No Pertinent History GI Medical History: Ulcer Psycho-Social History: No Pertinent History Male Reproductive Disorders: No Pertinent History - Past Surgical History Past Surgical History: Yes Cardiac: Cardiac Catheterization Other Surgical History: cath to check heart murmur at age 16 - Social History Smoking Status: Current every day smoker How long have you smoked: 9 Exposure to second hand smoke: No Alcohol Use: Chronic Drug Use: marijuana Patient Lives Alone: No Significant Family History: no pertinent family hx - Nursing Vital Signs Nursing Vital Signs: Initial Vital Signs Temperature 99.2 F Pulse Rate 60 Respiratory Rate 16 Blood Pressure [Right Arm] 120/78 Pain Intensity 0 - Physical Exam General Appearance: no apparent distress Eye Exam: PERRL/EOMI, eyes nml inspection Ears, Nose, Throat Exam: normal ENT inspection, TMs normal, pharynx normal, moist mucous membranes Neck Exam: normal inspection, non-tender, supple, full range of motion Respiratory Exam: normal breath sounds, lungs clear, No respiratory distress Cardiovascular Exam: regular rate/rhythm, normal heart sounds, normal peripheral pulses Gastrointestinal/Abdomen Exam: soft, normal bowel sounds, No tenderness, No mass Back Exam: normal inspection, normal range of motion, No CVA tenderness, No vertebral tenderness Extremity Exam: normal inspection, normal range of motion, pelvis stable Neurologic Exam: alert, oriented x 3, cooperative, normal mood/affect, nml cerebellar function, nml station & gait, sensation nml, No motor deficits Skin Exam: normal color, warm, dry, No rash Lymphatic Exam: No adenopathy SpO2 Interpretation: normal (98%) SpO2: 98 Oxygen Delivery: Room Air Ordered Tests: Active Orders 24 hr Category Date Time Status Accucheck STAT Care 10/04/16 00:16 Active Orthostatic Vital Signs STAT Care 10/04/16 00:17 Active - Progress Progress: improved Progress Note: 10/04/16 00:24 This is a 26-year-old black male who was seen here 2 days ago after using marijuana with complaints of body aches and diarrhea. Patient was noted to have low magnesium and low potassium he was given IV fluids and magnesium. He arrives stating that he has not been able to tases food since he was seen. On physical examination patient really does not appear to be any acute distress. He is alert oriented 3 pupils are mildly enlarged but reactive neurologic exam otherwise normal cranial nerves II through XII are intact. He has no chest pain vitals are stable. I had initially intended to obtain an Accu-Chek and obtain orthostatic vital signs. After review of the chart I had considered obtaining a BMP and magnesium level unfortunately, however, the patient apparently left while I was putting orders into the computer. - Departure Time of Disposition: 00:27 Departure Disposition: AMA Clinical Impression: Taste disorder Condition: Stable Critical Care Time: No
== END 2016-10-04 01:03 | disposition left against medical advice (07) ==
LOC: ED 22:28
DX: R43.9 Unspecified disturbances of smell and taste (principal)
CPT/HCPCS: 99281; 99282

== ENCOUNTER 2016-10-09 03:06 | Emergency (ER) | payer OTHER, SELFPAY ==
[2016-10-09] MEDS ORDERED: Rocephin 1000 MG INJ IM ONE (03:27)
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
[2016-10-09] MEDS ORDERED: Rocephin 1000 MG INJ ONE (03:43)
[2016-10-09] MEDS ORDERED: Sodium Chloride 0.9% 1000 ML 1,000 ML IV STA (03:56)
[2016-10-09 03:57] VITALS: O2SAT 97
[2016-10-09 04:42] VITALS: BP 143/80; PULSE 105
[2016-10-09] MEDS ORDERED: Sodium Chloride 0.9% 1000 ML 1,000 ML ONE (05:22)
== END 2016-10-09 04:35 | disposition short-term general hospital (02) ==
LOC: ED 03:06
DX: S81.012A Laceration without foreign body, left knee, initial encounter (principal); X99.9XXA Assault by unspecified sharp object, initial encounter
CPT/HCPCS: 96360; 99284; 99285; J0696

== ENCOUNTER 2017-03-31 10:28 | Emergency (ER) | payer OTHER, SELFPAY ==
--- NOTE | 2017-03-31 10:59 | ERPHSYRPT ---
- History of Present Illness Time Seen by Provider: 03/31/17 10:53 Source: patient Exam Limitations: no limitations Patient Subjective Stated Complaint: here for abscess to left buttock,pt developed abcess while in [facility], pt has seen for this at hospital and had an i/d done but did not get antibotics filled Triage Nursing Assessment: pt alert, walked in, resp easy, skin w/d,has abcess to bottom, that is draining slightly. no fever Physician History: The patient is a 26-year-old male who comes in complaining of worsening pain and swelling of an abscess to the left buttocks for the last several days. The area started to become painful in mid last week. On when he was in [facility], someone looked at it and he said they would put him on antibiotic but didn 't. On Friday he was released from [facility]. He then visited [facility] where they lanced, put a stitch in it, and gave him a prescription for an antibiotic. He did not take the antibiotic because he couldn't remember where he put the prescription. The area has now become more swollen and painful. He denies fever or chills. His past medical history is significant for alcoholic hepatitis and GERD. Timing/Duration: week(s) (1) Quality: painful Severity: moderate Location: perirectal Possible Causes: other (abscess) Associated Symptoms: denies symptoms Allergies/Adverse Reactions: No Known Drug Allergies Allergy (Verified 03/31/17 10:43) Hx Tetanus, Diphtheria Vaccination/Date Given: Yes (2015) Hx Influenza Vaccination/Date Given: No Hx Pneumococcal Vaccination/Date Given: No Immunizations Up to Date: Yes - Review of Systems Constitutional: No Fever, No Chills Eyes: No Symptoms Ears, Nose, & Throat: No Symptoms Respiratory: No Cough, No Dyspnea Cardiac: No Chest Pain, No Edema, No Syncope Abdominal/Gastrointestinal: No Abdominal Pain, No Nausea, No Vomiting, No Diarrhea Genitourinary Symptoms: No Dysuria Musculoskeletal: No Back Pain, No Neck Pain Skin: Other (abscess) Neurological: No Dizziness, No Focal Weakness, No Sensory Changes Psychological: No Symptoms Endocrine: No Symptoms Hematologic/Lymphatic: No Symptoms Immunological/Allergic: No Symptoms All Other Systems: Reviewed and Negative - Past Medical History Pertinent Past Medical History: Yes Neurological History: No Pertinent History ENT History: No Pertinent History Cardiac History: No Pertinent History Respiratory History: No Pertinent History Endocrine Medical History: No Pertinent History Musculoskeletal History: No Pertinent History GI Medical History: Ulcer Psycho-Social History: No Pertinent History Male Reproductive Disorders: No Pertinent History Other Medical History: heart mummer - Past Surgical History Past Surgical History: No Cardiac: Cardiac Catheterization Other Surgical History: cath to check heart murmur at age 16 - Social History Smoking Status: Current every day smoker How long have you smoked: 9 YRS Exposure to second hand smoke: Yes Alcohol Use: Chronic Drug Use: marijuana Patient Lives Alone: No Significant Family History: no pertinent family hx - Nursing Vital Signs Nursing Vital Signs: Initial Vital Signs Temperature 98.2 F 03/31/17 10:38 Pulse Rate 87 03/31/17 10:38 Respiratory Rate 16 03/31/17 10:38 Blood Pressure 129/61 03/31/17 10:38 O2 Sat by Pulse Oximetry 95 03/31/17 10:38 Pain Scale Pain Intensity 6 - Physical Exam General Appearance: mild distress Eye Exam: PERRL/EOMI, eyes nml inspection Ears, Nose, Throat Exam: normal ENT inspection, pharynx normal, moist mucous membranes Neck Exam: normal inspection, non-tender, supple, full range of motion Respiratory Exam: normal breath sounds, lungs clear, No respiratory distress Cardiovascular Exam: regular rate/rhythm, normal heart sounds Gastrointestinal/Abdomen Exam: soft, mass, No tenderness Rectal Exam: not done Back Exam: normal inspection, normal range of motion, No CVA tenderness, No vertebral tenderness Extremity Exam: normal inspection, normal range of motion Neurologic Exam: alert, oriented x 3, cooperative, normal mood/affect, sensation nml, No motor deficits Skin Exam: other (Examination of the left buttocks reveals a swollen and tender area that has a single suture to and incision site.) SpO2 Interpretation: normal SpO2: 95 Oxygen Delivery: Room Air - Progress Progress: improved, pain not gone completely Progress Note: 03/31/17 11:25 The suture that had been placed in the left buttocks on Friday to close and incision and drainage was removed. The old incision was then re-opened with an 11 blade scalpel. Copious amounts of purulent material was expressed from the abscess. Approximately 150 mL of purulent material was obtained. At the end of the procedure only purple blood was expressed. The wound was left open to drainage. No lidocaine was used in the process. The patient tolerated the procedure well. Counseled pt/family regarding: diagnosis - Departure Time of Disposition: 11:24 Departure Disposition: Home Clinical Impression: Abscess Condition: Stable Critical Care Time: No Additional Instructions: You had an abscess in the perirectal region. It was opened and drained in the ER. Leave the wound open for further drainage. Take clindamycin 300 mg 4 times a day for 10 days. Take Tylenol and ibuprofen as needed for pain. Prescriptions: Clindamycin HCl 1 cap PO QID #40 capsule
[2017-03-31 12:05] VITALS: BP 120/67; PULSE 80; O2SAT 98
== END 2017-03-31 11:46 | disposition home or self-care (01) ==
LOC: ED 10:28
DX: K61.1 Rectal abscess (principal)
CPT/HCPCS: 99283